=== PATIENT | male | born 1945 | race Caucasian/White ===

== ENCOUNTER → 2023-02-12 | Outpatient (CLI) | payer MEDICARE, OTHER ==
[~2023-02-12] VITALS: Ht 170.2 cm; Wt 74.0 kg
[~2023-02-12] MED LIST: ALBU18HF12 IH; AZIT250T9 PO; BENZ-227 PO; CHOL25TA4 PO; HYDR25TA2 PO; LORA10TA7 PO; OMEG-135 PO; SIMV-261 PO; TAMS0.4C94 PO
[2023-02-12 09:45] VITALS: BP 145/86; PULSE 75; RESP 16; TEMP 97.7; O2SAT 96
== END | disposition home or self-care (01) ==
LOC: SRCNTR 09:28
PROVIDERS: ATTEND Internal Medicine
DX: J45.909 Unspecified asthma, uncomplicated (principal); R09.82 Postnasal drip; I10 Essential (primary) hypertension; E11.9 Type 2 diabetes mellitus without complications
CPT/HCPCS: G0463